=== PATIENT | male | born 1975 | race African-American/Black ===

== ENCOUNTER → 2017-01-28 | Outpatient (CLI) | payer BC ==
--- NOTE | ~2017-01-28 | PFT ---
[id number] [facility] [address] [place], [place] [address] [id number] O MR#: [id number] NAME: NIDIA MALLORY ROOM: SEX: M STUDY DATE/TIME: : 1975 AGE: 41 STUDY DESCRIPTION: Attending Physician: Sita Atkinson M.D. Referring Physician: Sita Atkinson M.D. Primary Care Physician: Sita Atkinson M.D. PULMONARY DIAGNOSTIC REPORT EXAM Pulmonary Function Test DESCRIPTION Spirometry showed no obstructive defect. Flow volume loop was normal. Lung volumes were normal. Diffusion capacity was normal. He then underwent methylcholine challenge which revealed a significant 27% drop in FEV1. He partially responded to albuterol post procedure. FEV1 was 3.17 L, after methylcholine 2.29 L with a drop of 27%. Changes are consistent with asthma. Dictated by... Haris Duron M.D. DELL/carmelita TD: 01/29/2017 07:22 JOB #: [id number] PULMONARY DIAGNOSTIC REPORT Page 1 of 1
== END | disposition home or self-care (01) ==
LOC: CRC 07:44
DX: J45.30 Mild persistent asthma, uncomplicated (principal)
CPT/HCPCS: 94060; 94726; 94729; 95070; J7674